=== PATIENT | male | born 1965 | race Caucasian/White ===

== ENCOUNTER → 2017-01-16 | Outpatient (CLI) | payer OTHER ==
[~2017-01-16] MED LIST: CIPRO 500MG TA500 MG PO; CIPROFLOXACIN500 MG PO; FLOMAX 0.4MG C0.4 MG PO; FLOMAX0.4 MG PO; HYDROCODONE/ACE1 TA5 PO; KETOROLAC 10MG10 MG PO; NOMEDS *; Omeprazole20 MG PO; PERCOCET 10 MG1 EACH PO; PERCOCET 5/3251 EACH PO; PHENERGAN 25MG.25 M1 PO; POTASSIUM CHLO10 ME3 PO; SANCTURA20 MG PO
--- NOTE | 2017-01-17 12:58 | RADIOLOGY REPORT PS360 ---
PROCEDURE: 2-D M-mode and color Doppler study INDICATIONS FOR THE TEST: Chest pain+ COPD Heart Murmur Tobacco Smoking Palpitations+ Fatigue Syncope Edema Hypertension+Diabetes Mellitus Rheumatic Fever SOB JEAN+Obesity+Hyperlipidemia Family History HD+ Additional History hx of smoking, quit 6 months ago PATIENT INFORMATION HEIGHT: 66 WEIGHT: 195 GENDER: Male B/P: 128/85 2-D/M-MODE INTERPRETATION: 2-D MEASUREMENTS OBSERVED VALUES IN CMS Right Ventricular Dimension (RVDd) 2.3 Interventricular Septum (Thickness)(IVsd) 1.1 Left Ventricular Internal Dimensions(LVIDd) 3.1 Left Ventricular Posterior Wall (Thickness)(LVPWd) 1.1 Aortic Root 2.0 Aortic Cusp Separation 2.1 Left Atrial Dimensions (LAD) 3.3 2D 1. The left atrium is qualitatively mildly enlarged, left ventricle is normal size, there is mild concentric left ventricular hypertrophy present, visually estimated ejection fraction 55% with no obvious regional wall motion abnormality. 2. The right atrium and right ventricle are normal size and contractility. 3. The aortic valve is minimally thickened and calcified. 4. The mitral and tricuspid valve is structurally normal. 5. The pulmonic valve is not well visualized. 6. No significant pericardial effusion noted. DOPPLER INTERROGATION: Doppler interrogation of the aortic mitral and tricuspid valvular presence of mild mitral and tricuspid regurgitation, tricuspid and enteric velocity insufficient for calculation of the right ventricular systolic pressure, grade 1 diastolic dysfunction seen without tissue Doppler evidence of raised left atrial pressure. CONCLUSION: 1. Mildly enlarged left atrium, normal left ventricular size, mild qualitative concentric left ventricular hypertrophy present visually estimated ejection fraction 55% with no obvious regional wall motion abnormality, grade 1 diastolic dysfunction seen without tissue Doppler evidence of raised left atrial pressure. 2. Mild mitral and tricuspid regurgitation. 3. No significant pericardial effusion noted.
== END ==
LOC: RT 08:06
DX: R07.9 Chest pain, unspecified (principal)

== ENCOUNTER → 2017-02-04 | Outpatient (CLI) | payer OTHER ==
--- NOTE | 2017-02-04 15:34 | RADIOLOGY REPORT PS360 ---
CT CALCIUM SCORING W/3D CLINICAL INDICATION: HTN,CHEST PAIN,HYPOTHYROIDISM ORDERING PHYSICIAN: SHERMAN PEREZ MD PATIENT AGE: 51 years COMPARISON: None FINDINGS: Coronary calcium score is 123. Moderate plaque burden with high cardiovascular disease risk. Select images of the chest are unremarkable. IMPRESSION: Moderate plaque burden with a coronary artery calcium score of 123 indicating a high cardiovascular disease risk
== END ==
LOC: RAD 13:36
DX: R07.9 Chest pain, unspecified (principal); E03.9 Hypothyroidism, unspecified; I10 Essential (primary) hypertension

== ENCOUNTER → 2017-05-14 | Outpatient (CLI) | payer OTHER ==
[2017-05-14 07:31] LABS: BUN 20 mg/dL (7-18)
[2017-05-14 07:49] LABS: GFR (ESTIMATED) 64 ML/MIN (>60)
== END ==
LOC: LAB 07:13
PROVIDERS: Internal Medicine Cardiovascular Disease
DX: G47.33 Obstructive sleep apnea (adult) (pediatric) (principal); I10 Essential (primary) hypertension; E78.5 Hyperlipidemia, unspecified; I25.10 Atherosclerotic heart disease of native coronary artery without angina pectoris